=== PATIENT | female | born 1950 | race Two or more races ===

== ENCOUNTER 2025-03-15 21:31 | Emergency (ER) | payer OTHER ==
[~2025-03-15] VITALS: Ht 160 cm; Wt 81.0 kg
--- NOTE | 2025-03-15 23:45 | ED.PDOC ---
Nati. trauma (HPI) HPI Comments 74 year old female presents to ER with complaints of fall injury x 1 day. Patient presents VIA EMS, reporting that she tripped and fell down 1 step and landed on her left side onto gravel at approximately 5-6 p.m. this evening and has since been experiencing 7/10 lumbar back pain, left hip pain, neck pain and right ankle pain. Patient states she did hit her head upon falling denying any LOC/blood thinner use. Patient presents in wheelchair, in no distress and states she has not been able to ambulate since falling. Denies headache, numbness/tingling, n/v, shortness of breath, chest pain, abdominal/pelvic pain, changes in urination/bm or any further symptoms/complaints Chief Complaint: Fall Injury Time Seen by MD: 21:57 Primary Care Provider: UNKNOWN Reviewed notes: Nurses Notes, Medications, Allergies Allergies: Coded Allergies: NO KNOWN ALLERGIES (Unverified , 03/15/25) Home Meds Active Scripts Acetaminophen W/ Codeine (Tylenol W/Cod #3) 1 Tab Tb, 1 TAB PO Q6HPRN, #10 TAB 0 Refills Prov:ABBEY OCHOA 03/16/25 Information Source: Patient Mode of Arrival: EMS Past Medical History PAST MEDICAL HISTORY: GERD, HTN Past Medical History (Other): Chronic lumbar back pain Surgical History (Other): Left knee replacement 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 MAKER 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 History Family History Family History: Unknown Social History Smoker: Non-Smoker Alcohol: Denies ETOH Use Drugs: Denies Drug Use Lives In: Home Constitutional: denies: chills, diaphoresis, fatigue, fever, malaise, sweats, weakness, others EENTM: denies: blurred vision, double vision, ear bleeding, ear discharge, ear drainage, ear pain, ear ringing, eye pain, eye redness, hearing loss, mouth pain, mouth swelling, nasal discharge, nose bleeding, nose congestion, nose pain, photophobia, tearing, throat pain, throat swelling, voice changes, others Respiratory: denies: cough, hemoptysis, orthopnea, SOB at rest, shortness of breath, SOB with excertion, stridor, wheezing, others Cardiovascular: denies: chest pain, dizzy spells, diaphoresis, Dyspnea on exertion, edema, irregular heart beat, left arm pain, lightheadedness, palpitations, PND, syncope, others Gastrointestinal: denies: abdomen distended, abdominal pain, blood streaked bowels, constipated, diarrhea, dysphagia, difficulty swallowing, hematemesis, melena, nausea, poor appetite, poor fluid intake, rectal bleeding, rectal pain, vomiting, others Genitourinary: denies: abnormal vagina bleeding, burning, dyspareunia, dysuria, flank pain, frequency, hematuria, incontinence, pain, , vagina discharge, urgency, others Neurological: reports: others (As stated in HPI) Musculoskeletal: reports: others (As stated in HPI) Integumetry: denies: bruises, change in color, change in hair/nails, dryness, laceration, lesions, lumps, rash, wounds, others Allergic/Immunocompromised: denies: Difficulty Healing, Frequent Infections, Hives, Itching, others Hematologic/Lymphatic: denies: anemia, blood clots, easy bleeding, easy bruising, swollen glands, others Endocrine: denies: excessive hunger, excessive sweating, excessive thirst, excessive urination, flushing, intolerance to cold, intolerance to heat, unexplained weight gain, unexplained weight loss, others Psychiatric: denies: anxiety, bipolar disorder, depression, hopeless, panic disorder, schizophrenia, sleepless, suicidal, others Physical Exam General Appearance: No Apparent Distress, Obese HEENT: Normal ENT Inspection, PERRL/EOMI, Pharynx Normal, TMs Normal Neck: Full Range of Motion, Other (TTP to bilateral cervical paraspinals noted. No skin changes noted) Respiratory: Chest Non-Tender, Lungs Clear, No Accessory Muscle Use, No Respiratory Distress, Normal Breath Sounds Cardiovascular: No Murmur, No Gallop, Regular Rate/Rhythm Breast Exam: Deferred Gastrointestinal: Non Tender, No Pulsatile Mass, Soft Genitalia: Deferred Pelvic: Deferred Rectal: Deferred Extremities: Normal capillary refill, Normal range of motion Musculoskeletal : Extremity Location: Ankle (TTP to right medial malleolus noted. No skin changes noted. No other TTP to right lower extremity appreciated. Pulses intact), Back (TTP to left lower lumbar paraspinals noted. No skin changes noted. Gait slowed with use of assistance due to pain localized to left lower lumbar paraspinals and to left hip), Hip (TTP to left hip noted. No skin changes noted. No internal rotation/shortening to bilateral legs noted. 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 Was a procedure done?: No Sedation Sedation?: No Differential Diagnosis Multiple Trauma: Fractures, Vascular Injury, Laceration Neck Injury: Spinal Cord Injury, Other (Subdural hematoma, subarachnoid hemorrhage) X-Ray, Labs, Meds, VS Vital Signs Date Time Temp Pulse Resp B/P (MAP) Pulse Ox O2 Delivery O2 Flow Rate FiO2 03/16/25 00:15 98.3 76 16 136/52 (80) 100 98.3 03/15/25 22:14 97.9 83 20 149/66 (93) 83 97.9 03/15/25 22:14 83 20 100 Room Air 03/15/25 21:31 98.3 81 20 162/93 (116) 99 98.3 Current Medications Medications (Trade) Dose Ordered Sig/Dominga Route Start Time Stop Time Status Last Admin Acetaminophen/ Hydrocodone Bitart (Seymour 5/325MG Tab) 1 tab ONCE ONCE PO 03/15/25 23:45 03/15/25 23:46 DC 03/16/25 00:23 PATIENT: JEROMY BE ACCT: [id number] UNIT: [id number] : 1950 LOC: ER ROOM / BED: / AGE / SEX: 74 / F ADM STATUS: REG ER SERVICE 30 ORDERING PHYSICIAN: ABBEY OCHOA PROCEDURE(s): CS2 - CERVICAL WITHOUT CONTRAST REASON: neck pain ORDER NUMBER(s): [id number], ACCESSION NUMBER(s): [id number] EXAM: CT CERVICAL WITHOUT CONTRAST HISTORY: neck pain COMPARISON: None CTDIvol 50.42 mGy, DLP 1323.62 mGy*cm. TECHNIQUE: Multiple axial CT images of the spine were obtained using bone algorithm. Axial and coronal reformatting was done. Bone and soft tissue windows were reviewed. FINDINGS: No CT evidence of definite acute fracture, spinal dislocation, or significant appearing acute subluxation is seen. The visualized paraspinal soft tissues are grossly unremarkable. Moderate degenerative change includes disc height loss at the C5-C6 and C6-C7 level with adjacent endplate sclerosis and anterior osteophytosis. Multilevel bilateral facet hypertrophy is noted. IMPRESSION: 1. No definite CT evidence of acute fracture or dislocation of the bony cervical spine. Degenerative change noted. ATED BY: CHARLES HI MD DICTATED DATE/TIME: 03/16/2512 SIGNED BY: CHARLES HI MD SIGNED DATE/TIME: 03/16/2512 CC: PATIENT: JEROMY BE ACCT: [id number] UNIT: [id number] : 1950 LOC: ER ROOM / BED: / AGE / SEX: 74 / F ADM STATUS: REG ER SERVICE 30 ORDERING PHYSICIAN: ABBEY OCHOA PROCEDURE(s): HWOCT - HEAD WITHOUT CONTRAST REASON: head injury ORDER NUMBER(s): [id number], ACCESSION NUMBER(s): [id number] EXAM: CT HEAD WITHOUT CONTRAST INDICATION: head injury TECHNIQUE: CT of the head without intravenous contrast. Radiation Dose : 1. Head: CT Dose: CTDI volume is 50.42 mGy. Dose-length product is 13 23.62 mGy*cm The dose indicators for CT are the volume Computed Tomography (CT) Dose Index (CTDIvol) and the Dose Length Product (DLP), and are measured in units of mGy and mGy-cm, respectively. These indicators are not patient dose, but values generated from the CT scanner acquisition factors. The report includes radiation exposure data for exposures received during this examination. COMPARISON: None FINDINGS: There is no evidence of acute intracranial hemorrhage, extra-axial collection, mass effect, midline shift, herniation or hydrocephalus. The ventricles, sulci and cisterns are age appropriate. The bella-white differentiation is intact. Patchy periventricular and subcortical white matter hypoattenuation is nonspecific but may be related to small vessel ischemic disease. Left maxillary mucosal sinus disease. The remaining visualized paranasal sinuses and mastoid air cells are clear. The surrounding soft tissues and osseous structures are unremarkable. IMPRESSION: 1. No acute intracranial abnormality. Radiation optimization: All CT scans at this facility use at least one of these dose optimization techniques: automated exposure control mA and/or kV adjustment per patient size (includes targeted exams where dose is matched to clinical indication) or iterative reconstruction. ATED BY: CHARLES HI MD DICTATED DATE/TIME: 03/16/259 SIGNED BY: CHARLES HI MD SIGNED DATE/TIME: 03/16/259 CC: CLINICAL INDICATION: left hip pain TECHNIQUE: XY L HIP COMPLETE XRAY Comparison: None FINDINGS/IMPRESSION: : There is no evidence of acute fracture or dislocation. 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 Soft tissues are unremarkable. ATED BY: CHARLES HI MD DICTATED DATE/TIME: 03/16/2548 SIGNED BY: CHARLES HI MD SIGNED DATE/TIME: 03/16/2548 CC: PATIENT: JEROMY BE ACCT: [id number] UNIT: [id number] : 1950 LOC: ER ROOM / BED: / AGE / SEX: 74 / F ADM STATUS: REG ER SERVICE 2331 ORDERING PHYSICIAN: ABBEY OCHOA PROCEDURE(s): LUMB2 - LUMBAR SPINE 3 VIEW REASON: lumbar back pain ORDER NUMBER(s): [id number], ACCESSION NUMBER(s): [id number] INDICATION: lumbar back pain COMPARISON: None TECHNIQUE: 3 views of the lumbar spine were obtained. FINDINGS: The lumbar vertebral alignment is normal. Moderate L5-S1 disc height loss with adjacent endplate sclerosis. The intervertebral disc spaces are otherwise well-maintained. No significant facet arthropathy is noted. No acute fracture, vertebral compression deformity or aggressive osseous lesions. The paravertebral soft tissues are grossly unremarkable. Right upper quadrant surgical clips. IMPRESSION: 1. No acute fracture. Mild degenerative change noted. ATED BY: CHARLES HI MD DICTATED DATE/TIME: 03/16/2552 SIGNED BY: CHARLES HI MD SIGNED DATE/TIME: 03/16/2552 CC: PATIENT: JEROMY BE ACCT: [id number] UNIT: [id number] : 1950 LOC: ER ROOM / BED: / AGE / SEX: 74 / F ADM STATUS: REG ER SERVICE 30 ORDERING PHYSICIAN: ABBEY OCHOA PROCEDURE(s): LHIP - L HIP COMPLETE XRAY REASON: left hip pain ORDER NUMBER(s): [id number], ACCESSION NUMBER(s): [id number] CLINICAL INDICATION: left hip pain TECHNIQUE: XY L HIP COMPLETE XRAY Comparison: None FINDINGS/IMPRESSION: : There is no evidence of acute fracture or dislocation. 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 Soft tissues are unremarkable. ATED BY: CHARLES HI MD DICTATED DATE/TIME: 03/16/2548 SIGNED BY: CHARLES HI MD SIGNED DATE/TIME: 03/16/2548 CC: PATIENT: JEROMY BE ACCT: [id number] UNIT: [id number] : 1950 LOC: ER ROOM / BED: / AGE / SEX: 74 / F ADM STATUS: REG ER SERVICE 30 ORDERING PHYSICIAN: ABBEY OCHOA PROCEDURE(s): RANKL - R ANKLE 3 VIEW REASON: right ankle pain ORDER NUMBER(s): [id number], ACCESSION NUMBER(s): [id number] CLINICAL INDICATION: right ankle pain TECHNIQUE: XY R ANKLE 3 VIEW Comparison: None FINDINGS/IMPRESSION: : There is no evidence of acute fracture or dislocation. Soft tissues are unremarkable. ATED BY: CHARLES HI MD DICTATED DATE/TIME: 03/16/2549 SIGNED BY: CHARLES HI MD SIGNED DATE/TIME: 03/16/2549 CC: All CT/x-ray imaging reviewed Seymour 5/325 mg p.o. ordered Zofran 4 mg p.o. ordered Patient neurovascularly intact and reported improvement in symptoms prior to discharge Advised on rest/no strenuous activity, elevation and alternate ice on/off as needed for pain Advised to follow up with PCP in 1-2 days Patient and patient's daughter verbalized understanding and agreeable with current plan of care Advised to return to ER immediately if symptoms worsen Images Reviewed?: Images reviewed and evaluated by me Time of 1ST Reevaluation: 23:42 Reevaluation 1ST: N/A Patient Education/Counseling: Diagnosis, Treatment, Prognosis, Need For Follow Up Family Education/Counseling: Diagnosis, Treatment, Prognosis, Need For Follow Up Departure 1 Departure Time of Disposition: 01:02 Impression: Primary Impression: Head injury Qualified Codes: S09.90XA - Unspecified injury of head, initial encounter Additional Impressions: Cervical strain Qualified Codes: S16.1XXA - Strain of muscle, fascia and tendon at neck level, initial encounter Lumbar contusion Qualified Codes: S30.0XXA - Contusion of lower back and pelvis, initial encounter Contusion of hip, left Qualified Codes: S70.02XA - Contusion of left hip, initial encounter Right ankle sprain Qualified Codes: S93.401A - Sprain of unspecified ligament of right ankle, initial encounter Disposition: 01 HOME / SELF CARE / HOMELESS Condition: Stable e-Prescriptions Acetaminophen W/ Codeine (Tylenol W/Cod #3) 1 Tab Tb 1 TAB PO Q6HPRN, #10 TAB 0 Refills Prov: ABBEY OCHOA 03/16/25 Discharged With: Other (daughter) Critical Care Note Critical Care Time?: No Stability Stability form required: No Heart Score Heart Score: Heart Score Response (Comments) Value History N/A 0 EKG N/A 0 Age N/A 0 Risk Factors N/A 0 Troponin N/A 0 Total 0 ABBEY OCHOA Mar 15, 2025 23:45
--- NOTE | 2025-03-16 00:12 | DVH ---
EXAM: CT HEAD WITHOUT CONTRAST INDICATION: head injury TECHNIQUE: CT of the head without intravenous contrast. Radiation Dose : 1. Head: CT Dose: CTDI volume is 50.42 mGy. Dose-length product is 1323.62 mGy*cm The dose indicators for CT are the volume Computed Tomography (CT) Dose Index (CTDIvol) and the Dose Length Product (DLP), and are measured in units of mGy and mGy-cm, respectively. These indicators are not patient dose, but values generated from the CT scanner acquisition factors. The report includes radiation exposure data for exposures received during this examination. COMPARISON: None FINDINGS: There is no evidence of acute intracranial hemorrhage, extra-axial collection, mass effect, midline s hift, herniation or hydrocephalus. The ventricles, sulci and cisterns are age appropriate. The bella-white differentiation is intact. Patchy periventricular and subcortical white matter hypoattenuation is nonspecific but may be related to small vessel ischemic disease. Left maxillary mucosal sinus disease. The remaining visualized paranasal sinuses and mastoid air laura ls are clear. The surrounding soft tissues and osseous structures are unremarkable. IMPRESSION: 1. No acute intracranial abnormality. Radiation optimization: All CT scans at this facility use at least one of these dose optimization tom hniques: automated exposure control mA and/or kV adjustment per patient size (includes targeted exam s where dose is matched to clinical indication) or iterative reconstruction.
[2025-03-16 00:15] VITALS: BP 136/52; PULSE 76; RESP 16; TEMP 98.3; O2SAT 100
[2025-03-16] MEDS: ONDANSETRON ODT 4 MG TAB PO ONE (00:16)
--- NOTE | 2025-03-16 00:16 | DVH ---
EXAM: CT CERVICAL WITHOUT CONTRAST HISTORY: neck pain COMPARISON: None CTDIvol 50.42 mGy, DLP 1323.62 mGy*cm. TECHNIQUE: Multiple axial CT images of the spine were obtained using bone algorithm. Axial and coron al reformatting was done. Bone and soft tissue windows were reviewed. FINDINGS: No CT evidence of definite acute fracture, spinal dislocation, or significant appearing acute subluxa tion is seen. The visualized paraspinal soft tissues are grossly unremarkable. Moderate degenerative change includes disc height loss at the C5-C6 and C6-C7 level with adjacent end plate sclerosis and anterior osteophytosis. Multilevel bilateral facet hypertrophy is noted. IMPRESSION: 1. No definite CT evidence of acute fracture or dislocation of the bony cervical spine. Degenerative change noted.
[2025-03-16] MEDS: HYDROcodone-ACET 5/325MG TAB PO ONE (00:23)
--- NOTE | 2025-03-16 00:51 | DVH ---
CLINICAL INDICATION: left hip pain TECHNIQUE: XY L HIP COMPLETE XRAY Comparison: None FINDINGS/IMPRESSION: : There is no evidence of acute fracture or dislocation. 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 Soft tissues are unremarkable.
--- NOTE | 2025-03-16 00:52 | DVH ---
CLINICAL INDICATION: right ankle pain TECHNIQUE: XY R ANKLE 3 VIEW Comparison: None FINDINGS/IMPRESSION: : There is no evidence of acute fracture or dislocation. Soft tissues are unremarkable.
--- NOTE | 2025-03-16 00:55 | DVH ---
INDICATION: lumbar back pain COMPARISON: None TECHNIQUE: 3 views of the lumbar spine were obtained. FINDINGS: The lumbar vertebral alignment is normal. Moderate L5-S1 disc height loss with adjacent endplate sclerosis. The intervertebral disc spaces are otherwise well-maintained. No significant facet arthropathy is noted. No acute fracture, vertebral compression deformity or aggressive osseous lesions. The paravertebral soft tissues are grossly unremarkable. Right upper quadrant surgical clips. IMPRESSION: 1. No acute fracture. Mild degenerative change noted.
[2025-03-16] MEDS ORDERED: ACE3T PO (01:06)
== END 2025-03-16 01:22 | disposition home or self-care (01) ==
LOC: ER 21:31 → EDBD 21:31 → ER 03-16 01:22
DX: S93.401A Sprain of unspecified ligament of right ankle, initial encounter (principal); S16.1XXA Strain of muscle, fascia and tendon at neck level, initial encounter; S70.02XA Contusion of left hip, initial encounter; S30.0XXA Contusion of lower back and pelvis, initial encounter; S09.90XA Unspecified injury of head, initial encounter; K21.9 Gastro-esophageal reflux disease without esophagitis; I10 Essential (primary) hypertension; Z79.899 Other long term (current) drug therapy; Z96.652 Presence of left artificial knee joint; W01.0XXA Fall on same level from slipping, tripping and stumbling without subsequent striking against object, initial encounter; Y93.89 Activity, other specified; Y92.89 Other specified places as the place of occurrence of the external cause; Y99.8 Other external cause status
CPT/HCPCS: 70450; 72100; 72125; 73502; 73610